=== PATIENT | female | born 1980 | race Caucasian/White ===

== ENCOUNTER 2019-06-11 14:51 | Observation (INO) | payer BC ==
[~2019-06-11] VITALS: Ht 162.6 cm; Wt 112.9 kg
[2019-06-11 15:43] LABS: BASOPHILS % (AUTO) 0.4 % (0.0-2.0); EOSINOPHILS # (AUTO) 0.1 K/uL (0.0-0.4); EOSINOPHILS % (AUTO) 1.6 % (0.0-4.0); HEMATOCRIT 35.8 % (36-48); LYMPHOCYTES # (AUTO) 1.8 K/uL (1.0-5.5); LYMPHOCYTES % (AUTO) 22.2 % (20.5-51.5); MEAN CORPUSCULAR HEMOGLOBIN 28 pg (27-31); MEAN CORPUSCULAR HGB CONC 34 % (32-36); MEAN CORPUSCULAR VOLUME 84 fL (79.0-98.0); MONOCYTES # (AUTO) 0.6 K/uL (0.0-1.0); MONOCYTES % (AUTO) 6.8 % (1.7-9.3); NEUTROPHILS # (AUTO) 5.6 K/uL (1.8-7.7); PLATELET COUNT (AUTO) 161 K/uL (130-430); RED BLOOD CELL COUNT(AUTO) 4.28 MIL/uL (4.2-6.2); RED CELL DISTRIBUTION WIDTH 14.8 % (9.0-15.0); WHITE BLOOD COUNT (AUTO) 8.2 K/uL (4.8-10.8)
[2019-06-11 15:56] LABS: BILIRUBIN,URINE NEGATIVE (NEGATIVE); BLOOD, URINE NEGATIVE (NEGATIVE); CLARITY/URINE CLEAR (CLEAR); COLOR,URINE YELLOW (YELLOW); GLUCOSE,URINE NEGATIVE (NEGATIVE); KETONES,URINE NEGATIVE (NEGATIVE); LEUKOCYTE ESTERASE ,URINE NEGATIVE (NEGATIVE); NITRITE, URINE NEGATIVE (NEGATIVE); PROTEIN URINE NEGATIVE (NEGATIVE); UROBILINOGEN,URINE 0.2 (0.2-1.0)
[2019-06-11 15:58] LABS: CALCIUM 9.2 mg/dL (8.4-11.0); CREATININE 0.65 mg/dL (0.55-1.30); POTASSIUM 3.4 mmol/L (3.5-5.1)
[2019-06-11 16:03] LABS: ALBUMIN 2.6 g/dL (3.4-4.8); TOTAL BILIRUBIN 0.2 mg/dL (0.0-1.0)
== END 2019-06-11 17:05 | disposition home or self-care (01) ==
LOC: SPU 14:51
PROVIDERS: ADMIT Specialist; ATTEND Specialist
DX: O16.3 Unspecified maternal hypertension, third trimester (principal); Z3A.36 36 weeks gestation of pregnancy
CPT/HCPCS: 36415; 59025; 80053; 81003; 85025; G0378

== ENCOUNTER 2019-06-12 06:27 | Inpatient (IN) | payer BC ==
[~2019-06-12] VITALS: Ht 167.6 cm; Wt 95.3 kg
[2019-06-12] MEDS ORDERED: LR 1,000 ML IV ONE (07:28)
[2019-06-12] MEDS ORDERED: NALBUPHINE HCL 10 MG/ML AMP IVP PRN (07:30)
[2019-06-12] MEDS ORDERED: CEFAZOLIN 2 GM IVPB PREMIX 50 ML IV ONE (07:30)
[2019-06-12] MEDS ORDERED: TERBUTALINE SULFATE 1 MG/ML VIAL SUBCUT ONE (07:30)
[2019-06-12] MEDS ORDERED: TERBUTALINE SULFATE 1 MG/ML VIAL ONE (07:47)
[2019-06-12] MEDS ORDERED: NALBUPHINE HCL 10 MG/ML AMP ONE (07:47)
[2019-06-12 07:56] LABS: BASOPHILS % (AUTO) 0.3 % (0.0-2.0); EOSINOPHILS # (AUTO) 0.2 K/uL (0.0-0.4); EOSINOPHILS % (AUTO) 1.9 % (0.0-4.0); HEMATOCRIT 35.8 % (36-48); HEMOGLOBIN 12.2 g/dL (12.0-16.0); LYMPHOCYTES # (AUTO) 2.5 K/uL (1.0-5.5); LYMPHOCYTES % (AUTO) 29.1 % (20.5-51.5); MEAN CORPUSCULAR HEMOGLOBIN 29 pg (27-31); MEAN CORPUSCULAR HGB CONC 34 % (32-36); MEAN CORPUSCULAR VOLUME 84 fL (79.0-98.0); MONOCYTES # (AUTO) 0.6 K/uL (0.0-1.0); NEUTROPHILS # (AUTO) 5.4 K/uL (1.8-7.7); NEUTROPHILS % (AUTO) 61.7 % (40.0-70.0); PLATELET COUNT (AUTO) 159 K/uL (130-430); RED BLOOD CELL COUNT(AUTO) 4.25 MIL/uL (4.2-6.2); RED CELL DISTRIBUTION WIDTH 14.8 % (9.0-15.0); WHITE BLOOD COUNT (AUTO) 8.8 K/uL (4.8-10.8)
[2019-06-12 08:51] LABS: BILIRUBIN,URINE NEGATIVE (NEGATIVE); CLARITY/URINE CLEAR (CLEAR); COLOR,URINE YELLOW (YELLOW); GLUCOSE,URINE NEGATIVE (NEGATIVE); KETONES,URINE NEGATIVE (NEGATIVE); LEUKOCYTE ESTERASE ,URINE NEGATIVE (NEGATIVE); NITRITE, URINE NEGATIVE (NEGATIVE); PROTEIN URINE NEGATIVE (NEGATIVE); UROBILINOGEN,URINE 0.2 (0.2-1.0)
[2019-06-12 08:56] LABS: BLOOD, URINE TRACE (NEGATIVE)
[2019-06-12 09:04] LABS: BACTERIA,URINE FEW /HPF (None Seen); MUCUS,URINE None Seen /LPF (None Seen); RBC,URINE 0-3 /HPF (0-3); WBC,URINE 0-3 /HPF (0-3)
[2019-06-12] MEDS ORDERED: BUPIVACAINE /DEX PF 0.75% SPINAL 2 ML AMP INJ ONE (10:20)
[2019-06-12] MEDS ORDERED: ONDANSETRON HCL 4 MG/2 ML VIAL IVP ONE (10:20)
[2019-06-12] MEDS ORDERED: LR 1,000 ML IV.SOLN IV ONE (10:20)
[2019-06-12] MEDS ORDERED: NS IRRIG SOLN 1000 ML IR ONE (10:20)
[2019-06-12] MEDS ORDERED: NEOSTIGMINE METHYLSULFATE 1 MG/ML, 10 ML VIAL IVP ONE (10:20)
[2019-06-12] MEDS ORDERED: MORPHINE SULFATE 10MG/10ML PF AMP EP ONE (10:20)
[2019-06-12] MEDS ORDERED: LR 1,000 ML IV SCH (10:54)
[2019-06-12] MEDS ORDERED: ONDANSETRON HCL 4 MG/2 ML VIAL IVP PRN (11:00)
[2019-06-12] MEDS ORDERED: KETOROLAC TROMETHAMINE 60 MG/2 ML VIAL IM PRN (11:00)
[2019-06-12] MEDS ORDERED: MORPHINE SULFATE 10MG/10ML PF AMP SP SCH (11:00)
[2019-06-12] MEDS ORDERED: METOCLOPRAMIDE HCL 10 MG/2 ML VIAL IVP PRN (11:00)
[2019-06-12] MEDS ORDERED: NALOXONE HCL 0.4 MG/ML AMP (NARCAN) IVP PRN (11:00)
[2019-06-12] MEDS ORDERED: MEPERIDINE HCL/PF 50 MG/ML AMP IVP PRN ×2 (11:00)
[2019-06-12] MEDS ORDERED: MEPERIDINE HCL/PF 25 MG/ML DISP.SYRIN IVP PRN (11:00)
[2019-06-12] MEDS ORDERED: MORPHINE SULFATE 10MG/10ML PF AMP EP SCH (11:00)
[2019-06-12] MEDS ORDERED: DIPHENHYDRAMINE INJ 50 MG/ML VIAL IM PRN (11:00)
[2019-06-12 11:28] VITALS: BP_SYST 142
[2019-06-13] MEDS ORDERED: IBUPROFEN 800 MG TABLET ONE (02:12)
[2019-06-13] MEDS ORDERED: LR 1,000 ML IV SCH (02:12)
[2019-06-13] MEDS ORDERED: OXYTOCIN/0.9 % SODIUM CHLORIDE 1,000 ML IV ONE (02:12)
[2019-06-13] MEDS ORDERED: ANUSOL 1 EA SUPP.RECT (PREPARATION H) RC PRN (02:15)
[2019-06-13] MEDS ORDERED: OXYCODONE/ACETAMINOPHEN 5-325 TABLET PO PRN (02:15)
[2019-06-13] MEDS ORDERED: MORPHINE SULFATE 10 MG/ML VIAL IVP PRN (02:15)
[2019-06-13] MEDS ORDERED: BISACODYL 10 MG/SUPPOSITORY RC PRN (02:15)
[2019-06-13] MEDS ORDERED: LANOLIN 7 GM OINT. TP PRN (02:15)
[2019-06-13] MEDS ORDERED: SENNOSIDES/DOCUSATE SODIUM 1 TAB TABLET(SENOKOT-S) PO PRN (02:15)
[2019-06-13] MEDS: IBUPROFEN 600 MG TABLET PO PRN ×4 (03:43→23:00)
[2019-06-13] MEDS: OXYCODONE/ACETAMINOPHEN 5-325 TABLET PO PRN ×3 (06:02→21:45)
[2019-06-13] MEDS: SIMETHICONE 80 MG TAB.CHEW PO PRN ×3 (06:03→17:45)
[2019-06-13] MEDS: DOCUSATE SODIUM 100 MG CAPSULE PO PRN (06:03)
[2019-06-14] MEDS: DOCUSATE SODIUM 100 MG CAPSULE PO PRN ×3 (01:46→20:16)
[2019-06-14] MEDS: OXYCODONE/ACETAMINOPHEN 5-325 TABLET PO PRN ×6 (01:46→20:16)
[2019-06-14] MEDS: SIMETHICONE 80 MG TAB.CHEW PO PRN ×5 (03:34→20:16)
[2019-06-14] MEDS: IBUPROFEN 600 MG TABLET PO PRN ×2 (06:22→23:45)
[2019-06-14 06:23] LABS: BASOPHILS % (AUTO) 0.3 % (0.0-2.0); EOSINOPHILS # (AUTO) 0.2 K/uL (0.0-0.4); EOSINOPHILS % (AUTO) 2.3 % (0.0-4.0); HEMATOCRIT 28.5 % (36-48); HEMOGLOBIN 9.9 g/dL (12.0-16.0); LYMPHOCYTES # (AUTO) 1.6 K/uL (1.0-5.5); LYMPHOCYTES % (AUTO) 17.2 % (20.5-51.5); MEAN CORPUSCULAR HEMOGLOBIN 29 pg (27-31); MEAN CORPUSCULAR HGB CONC 35 % (32-36); MEAN CORPUSCULAR VOLUME 85 fL (79.0-98.0); MONOCYTES # (AUTO) 0.6 K/uL (0.0-1.0); MONOCYTES % (AUTO) 6.7 % (1.7-9.3); NEUTROPHILS % (AUTO) 73.5 % (40.0-70.0); PLATELET COUNT (AUTO) 162 K/uL (130-430); RED BLOOD CELL COUNT(AUTO) 3.37 MIL/uL (4.2-6.2); WHITE BLOOD COUNT (AUTO) 9.5 K/uL (4.8-10.8)
[2019-06-15] MEDS: IBUPROFEN 600 MG TABLET PO PRN ×2 (06:15→17:40)
[2019-06-15] MEDS: OXYCODONE/ACETAMINOPHEN 5-325 TABLET PO PRN ×3 (08:08→21:16)
[2019-06-15] MEDS: DOCUSATE SODIUM 100 MG CAPSULE PO PRN (21:16)
[2019-06-16] MEDS: IBUPROFEN 600 MG TABLET PO PRN ×4 (00:27→16:37)
[2019-06-16] MEDS: OXYCODONE/ACETAMINOPHEN 5-325 TABLET PO PRN ×2 (06:31→16:38)
[2019-06-16] MEDS: SIMETHICONE 80 MG TAB.CHEW PO PRN ×2 (06:32→16:37)
[2019-06-16] MEDS ORDERED: IBUP-1969 PO (09:52)
[2019-06-16] MEDS ORDERED: DOCU-144 PO (09:52)
[2019-06-16] MEDS: DOCUSATE SODIUM 100 MG CAPSULE PO PRN (16:37)
== END 2019-06-16 17:05 | disposition home or self-care (01) | DRG 788 ==
LOC: SPU 06:27 → OBSVTOIN 07:10 → SPU 12:47
PROVIDERS: ADMIT Specialist; ATTEND Specialist
PROC: 10D00Z1 Extraction of Products of Conception, Low, Open Approach (ICD-10-PCS; principal; 2019-06-12 10:00)
DX: O34.211 Maternal care for low transverse scar from previous cesarean delivery (principal); O16.4 Unspecified maternal hypertension, complicating childbirth; O99.214 Obesity complicating childbirth; O99.62 Diseases of the digestive system complicating childbirth; K66.0 Peritoneal adhesions (postprocedural) (postinfection); Z37.0 Single live birth; Z3A.38 38 weeks gestation of pregnancy
CPT/HCPCS: 36415; 81000-TC; 85025; 86592; 86886; 86900; 86901; 94760; G0378; J0690; J1200; J1885; J2274; J2300; J2405; J2710; J3105; J3490; J7120